=== PATIENT | female | born 1995 | race Caucasian/White ===

== ENCOUNTER 2017-03-14 06:02 | Day surgery (SDC) | payer BC, OTHER ==
[~2017-03-14] VITALS: Ht 175.3 cm; Wt 61.2 kg
--- NOTE | ~2017-03-14 | O ---
[address] [address] OPERATIVE REPORT Name: INDRA GARCIA Room #: 150-8 [facility]..#: [id number] Admission: 03/14/17 Attend Phys: Jonathon Holloway MD Discharge: Date of : 89 Report #: [id number] THIS REPORT FOR: //name// CC: Darren Holloway DATE OF SERVICE: 03/14/2017 SERVICE: Orthopedics. FACILITY: [facility]. SURGEON: Jonathon Holloway MD CHILD GUIDANCE COUNSELOR: None. PREOPERATIVE DIAGNOSES: 1. Left hip pain. 2. Left hip femoroacetabular impingement. 3. Left hip extraarticular subspine impingement. 4. Left hip labral tear. 5. Left hip Cam deformity. POSTOPERATIVE DIAGNOSES: 1. Left hip pain. 2. Left hip femoroacetabular impingement. 3. Left hip extraarticular subspine impingement. 4. Left hip labral tear. 5. Left hip Cam deformity. PROCEDURE: 1. Left hip arthroscopic Cam osteochondroplasty. 2. Left hip arthroscopic subspine recession/acetabuloplasty. 3. Left hip arthroscopic labral repair. COMPLICATIONS: None. DRAINS: None. SPECIMENS: None. ANESTHESIA TYPE: General with single shot regional nerve block. FINDINGS: 1. Large subspine lesion treated with resection using fluoroscopy on multiple planes. [address] [address] OPERATIVE REPORT Name: INDRA GARCIA Room #: 150-8 [facility]#: [id number] Admission: 03/14/17 Attend Phys: Jonathon Holloway MD Discharge: Date of : 89 Report #: [id number] 2. Acetabular labral repair with Jb pivot NanoTack anchor x 3. 3. Cam lesion resected under fluoroscopic and arthroscopic visualization. 4. Capsular repair with #2 Vicryl x 4 sutures. HISTORY AND INDICATIONS: The patient is a 21-year-old female who has been having greater than one year of persistent left hip pain that had progressed to the point that she was having pain simply with sitting as well as simple ADLs. She had tried extensive amount of nonoperative treatment including intraarticular injection, rest, activity modification, formal physical therapy for greater than 3 months with a total of 2 separate therapy courses, 1 in [place] and 1 in [place], oral medications and soft tissue modalities. Despite this, she continue to have lifestyle limiting pain and wished to have definitive treatment. She had preoperative imaging with a crossover sign secondary to a large subspine lesion which was responsible for the extraarticular impingement and then she had an alpha angle of 60 degrees on the preoperative imaging of the femur. There was a labral tear at the chondral labral junction anterosuperiorly on the MRI. Risks, benefits, alternatives and indications for surgery were discussed with her in detail. The risks include but not limited to pain, bleeding, infection, injury to nerves and blood vessels, persistent pain despite surgical intervention, failure of any repairs, reconstructions, progression of any preexisting chondral injury, stiffness, need for further surgery as well as complications related to anesthesia such as stroke, heart attack, pulmonary complications, thromboembolic disease and . Despite these risks, she wished to proceed. PROCEDURE IN DETAIL: After left lower extremity was correctly identified in the preoperative holding area as the operative extremity, the patient underwent placement of a single shot regional nerve block. She was then taken to the operating room and placed supine on operating table and general anesthesia with LMA was induced without complication. All bony prominences were padded appropriately. Prophylactic antibiotics were administered at appropriate time. Traction boots were placed on the bilateral lower extremities and the left hip femoral head and neck junction was evaluated under fluoroscopy. She was noted to have a small to medium sized Cam lesion within a maximal alpha angle of 65 degrees on these intraoperative use, the Cam extended from the 15 degree position to the 75 degree position. Left lower extremity was then prepped and draped in standard sterile fashion. Time-out procedure was performed. Traction was applied to left lower extremity. Total traction time was 1 hour and 6 minutes approximately. Under direct fluoroscopic guidance, an anterolateral viewing portal was established in standard outside in fashion and then a mid anterior working portal under direct arthroscopic visualization and then a transverse [address] [address] OPERATIVE REPORT Name: INDRA GARCIA Room #: 150-8 [facility] M.R.#: [id number] Admission: 03/14/17 Attend Phys: Jonathon Holloway MD Discharge: Date of : 95 Report #: [id number] capsulotomy was performed. Diagnostic arthroscopy revealed intact cartilage and labrum posteriorly with pathology in the anterior aspect of the hip, consistent with the imaging. The labral tear was directly below the subspine pincer impingement lesion and it extended from the 1 o'clock position to the 10 o'clock position. The capsule was reflected off the dorsal side of the labrum then the labrum was gently taken down to expose the extent of the subspine lesion and then a bur was used to recess this all the way back under fluoroscopic confirmation to appropriate position to allow better mechanics of the hip and eliminate this extraarticular impingement. The acetabular rim was then burred just to generate a fresh bleeding surface for labral repair and then a distal anterolateral accessory portal was established and the first [employer] NanoTack suture anchor with tape was placed, then a second and third were placed sequentially working laterally, mattress sutures were selected to allow for an anatomic advent of the labral position on the acetabular rim. A shaver was then used to perform a chondroplasty where the cartilage was soft and then there was a small chondral bleb generating the chondral wave sign, which measured approximately 10 x 4 mm. After this was completed, the hip traction was let down. A Cam osteoplasty was then performed under direct arthroscopic visualization. The scope was removed from the hip, x-rays were taken and identified an additional area that needed to be resected, so I placed the instruments back into the hip and completed the Cam osteoplasty and then took final x-rays showing good advent of the femoral head and neck offset. A total of four #2 Vicryls were then used to close the transverse capsulotomy providing good seal of the capsule layer after the instruments were removed and arthroscopic effusion was drained. Portal sites were closed with a deep followed by superficial 3-0 Monocryl suture. Sterile dressing was applied. There were no complications and all counts were recorded as correct. <ELECTRONICALLY SIGNED> By: Jonathon Holloway MD 03/15/17 0724 [id number] Jonathon Holloway MD /nt
[~2017-03-14 06:02] MED LIST: CENTRUM SILVER1 EAC4 PO; CYCLAFEM1 EACH PO; SERTRALINE HCL100 MG PO; SYMBICORT160 MCG/4. INH; VENTOLIN HFA 1818 GM INH; VITAMIN B COMP1 EACH PO
[2017-03-14 12:15] VITALS: BP 151/92
[2017-03-14 16:54] VITALS: BP 151/92
== END 2017-03-14 17:45 | disposition home or self-care (01) ==
LOC: TBA 06:02 → OR 06:02
DX: S73.192A Other sprain of left hip, initial encounter (principal); M25.852 Other specified joint disorders, left hip; M21.852 Other specified acquired deformities of left thigh
CPT/HCPCS: 50010; 50101; 50386; 51538; 52298; 52304; 55430; 56524; 56527; 57092; 62110; 62900; 64042; 64043; 70005